=== PATIENT | female | born 1945 | race Asian ===

== ENCOUNTER 2017-05-15 20:08 | Inpatient (IN) | payer MEDICARE, OTHER ==
[~2017-05-15] VITALS: Ht 160 cm; Wt 68.0 kg
[2017-05-15] MEDS ORDERED: Sodium Chloride 500ML 500 ML IV ONE (20:30)
[2017-05-15 21:16] LABS: BASOPHILS % (AUTO) 1.1 % (0.0-2.0); EOSINOPHILS % (AUTO) 0.8 % (0.0-3.0); HEMATOCRIT 41.1 % (37.0-47.0); HEMOGLOBIN 14.1 G/DL (12.0-16.0); LYMPHOCYTES % (AUTO) 34.5 % (20.0-45.0); MEAN CORPUSCULAR VOLUME 96 FL (80-99); MONOCYTES % (AUTO) 7.7 % (1.0-10.0); NEUTROPHILS % (AUTO) 55.9 % (45.0-75.0); PLATELET COUNT 220 K/UL (150-450); RED CELL DISTRIBUTION WIDTH 11.9 % (11.6-14.8); WHITE BLOOD COUNT 7.4 K/UL (4.8-10.8)
[2017-05-15 21:25] LABS: ANION GAP 10 mmol/L (5-15); BLOOD UREA NITROGEN 17 mg/dL (7-18); CARBON DIOXIDE 26 MMOL/L (21-32); CHLORIDE 105 MMOL/L (98-107); CREATININE 0.8 MG/DL (0.55-1.30); POTASSIUM 3.9 MMOL/L (3.5-5.1); SODIUM 141 MMOL/L (136-145)
[2017-05-15 21:48] LABS: ALANINE AMINOTRANSFERASE 39 U/L (12-78); ALBUMIN 3.8 G/DL (3.4-5.0); ALBUMIN/GLOBULIN RATIO 1.2 (1.0-2.7); ALKALINE PHOSPHATASE 60 U/L (46-116); ASPARTATE AMINO TRANSFERASE 25 U/L (15-37); BILIRUBIN,TOTAL 0.3 MG/DL (0.2-1.0); CKMB 0.9 NG/ML (0.0-3.6); CREATINE KINASE 76 U/L (26-308)
[2017-05-15 21:51] LABS: INR 8.1 (0.9-1.1)
--- NOTE | 2017-05-15 22:29 | Emergency Room Report ---
History of Present Illness General Chief Complaint: Abnormal Labs Source: Medical Record, EMS Present Illness HPI 71-year-old male presents ED for evaluation. Patient referred here for abnormal labs. Had coags that were abnormally high. She resides in [facility] facility. Patient is on Coumadin. Portable patient states she feels okay. Denies any headache nausea or vomiting. Denies any chest pain shortness of breath. No other aggravating or relieving factors. Denies any other associated symptoms Allergies: Coded Allergies: MICAFUNGIN (Unverified Allergy, Unknown, 05/15/17) VANCOMYCIN (Unverified Allergy, Unknown, 05/15/17) Patient History Past Medical History: CVA/TIA Past Surgical History: none Pertinent Family History: none Social History: Denies: smoking, alcohol use, drug use Now: No Immunizations: UTD Reviewed Nursing Documentation: PMH: Agreed, PSxH: Agreed Nursing Documentation-PMH Hx Cerebrovascular Accident: Yes - ALOC Review of Systems All Other Systems: negative except mentioned in HPI Physical Exam Vital Signs Date Time Temp Pulse Resp B/P (MAP) Pulse Ox O2 Delivery O2 Flow Rate FiO2 05/15/17 20:02 97.9 77 16 131/87 95 Room Air Sp02 EP Interpretation: reviewed, normal General Appearance: no apparent distress, alert, GCS 15, non-toxic Head: normocephalic, atraumatic Eyes: bilateral eye normal inspection, bilateral eye PERRL ENT: hearing grossly normal, normal pharynx, no angioedema, normal voice Neck: full range of motion, supple/symm/no masses Respiratory: chest non-tender, lungs clear, normal breath sounds, speaking full sentences Cardiovascular #1: regular rate, rhythm, no edema Cardiovascular #2: 2+ carotid (R), 2+ carotid (L), 2+ radial (R), 2+ radial (L) , 2+ dorsalis pedis (R), 2+ dorsalis pedis (L) Gastrointestinal: normal bowel sounds, non tender, soft, non-distended, no guarding, no rebound Rectal: deferred Genitourinary: normal inspection, no CVA tenderness Musculoskeletal: back normal, gait/station normal, normal range of motion, non- tender Neurologic: alert, oriented x3, responsive, motor strength/tone normal, sensory intact, speech normal Psychiatric: judgement/insight normal, memory normal, mood/affect normal, no suicidal/homicidal ideation Reflexes: 3+ bicep (R), 3+ bicep (L), 3+ tricep (R), 3+ tricep (L), 3+ knee (R) , 3+ knee (L) Skin: normal color, no rash, warm/dry, well hydrated Lymphatic: no adenopathy Medical Decision Making Diagnostic Impression: Primary Impression: Supratherapeutic international normalized ratio (INR) ER Course Hospital Course 71-year-old female presents ED for elevated INR. On Coumadin Differential diagnoses include: coagulopathy, bleeding, subdural heamtoma Clinical course Patient placed on stretcher. on loader. After initial history and physical I ordered labs, EKG, chest x-ray, IVFs, CT Brain labs reviewed- no leukocytosis, hemoglobin/hematocrit ok, electrolytes okay, troponins negative, INR 8.1 EKG-NSR, no acute ischemic changes interpreted by me Chest x-ray- no acute process CT brain- s/p craniectomy, no acute bleed given vitamin K Case discussed with Dr. Salazar and he agreed to accept the patient to his service for further care and support I. I feel this is a highly complex case requiring extensive working including EKG/Rhythm strip, Xray/CT/US, Blood/urine lab work, repeat exams while in ED, and administration of strong opiates/narcotics for pain control, admission to hospital or close patient follow up. Diagnosis - supratherapeutic INR admitted to telemetry in serious condition Labs Test 05/15/17 20:40 White Blood Count 7.4 K/UL (4.8-10.8) Red Blood Count 4.30 M/UL (4.20-5.40) Hemoglobin 14.1 G/DL (12.0-16.0) Hematocrit 41.1 % (37.0-47.0) Mean Corpuscular Volume 96 FL (80-99) Mean Corpuscular Hemoglobin 32.9 PG (27.0-31.0) Mean Corpuscular Hemoglobin Concent 34.4 G/DL (32.0-36.0) Red Cell Distribution Width 11.9 % (11.6-14.8) Platelet Count 220 K/UL (150-450) Mean Platelet Volume 6.9 FL (6.5-10.1) Neutrophils (%) (Auto) 55.9 % (45.0-75.0) Lymphocytes (%) (Auto) 34.5 % (20.0-45.0) Monocytes (%) (Auto) 7.7 % (1.0-10.0) Eosinophils (%) (Auto) 0.8 % (0.0-3.0) Basophils (%) (Auto) 1.1 % (0.0-2.0) Prothrombin Time 87.0 SEC (9.30-11.50) Prothromb Time International Ratio 8.1 (0.9-1.1) Activated Partial Thromboplast Time 63 SEC (23-33) Sodium Level 141 MMOL/L (136-145) Potassium Level 3.9 MMOL/L (3.5-5.1) Chloride Level 105 MMOL/L (98-107) Carbon Dioxide Level 26 MMOL/L (21-32) Anion Gap 10 mmol/L (5-15) Blood Urea Nitrogen 17 mg/dL (7-18) Creatinine 0.8 MG/DL (0.55-1.30) Estimat Glomerular Filtration Rate mL/min (>60) Glucose Level 121 MG/DL (74-106) Calcium Level 9.0 MG/DL (8.5-10.1) Total Bilirubin 0.3 MG/DL (0.2-1.0) Aspartate Amino Transf (AST/SGOT) 25 U/L (15-37) Alanine Aminotransferase (ALT/SGPT) 39 U/L (12-78) Alkaline Phosphatase 60 U/L (46-116) Total Creatine Kinase 76 U/L (26-308) Creatine Kinase MB 0.9 NG/ML (0.0-3.6) Creatine Kinase MB Relative Index 1.1 Troponin I 0.000 ng/mL (0.000-0.056) Total Protein 7.0 G/DL (6.4-8.2) Albumin 3.8 G/DL (3.4-5.0) Globulin 3.2 g/dL Albumin/Globulin Ratio 1.2 (1.0-2.7) EKG Diagnostic Results Rate: normal Rhythm: NSR ST Segments: no acute changes ASA given to the pt in ED: No Rhythm Strip Diag. Results EP Interpretation: yes Rhythm: NSR, no PVC's, no ectopy Chest X-Ray Diagnostic Results Chest X-Ray Diagnostic Results : Chest X-Ray Ordered: Yes # of Views/Limited/Complete: 1 View Indication: Chest Pain EP Interpretation: Yes Interpretation: no consolidation, no effusion, no pneumothorax, no acute cardiopulmonary disease Impression: No acute disease Electronically Signed by: Electronically signed by Kel Pollock MD CT/MRI/US Diagnostic Results CT/MRI/US Diagnostic Results : Imaging Test Ordered: CT head Impression status post craniectomy, no acute bleed Last Vital Signs Date Time Temp Pulse Resp B/P (MAP) Pulse Ox O2 Delivery O2 Flow Rate FiO2 05/15/17 20:02 97.9 77 16 131/87 95 Room Air Status: improved Disposition: ADMITTED INPATIENT Condition: Serious Referrals: Natalee Salazar MD (PCP) KEL POLLOCK M.D. May 15, 2017 22:29
[2017-05-15 22:30] VITALS: BP 126/83
[2017-05-15] MEDS ORDERED: Phytonadione 5 MG in D5W 55 ML IVPB ONE (23:00)
[2017-05-15] MEDS ORDERED: Phytonadione 10 mg/mL 1ml amp ONE (23:05)
[2017-05-15] MEDS ORDERED: MULTIVITAMINS1 EAC8 ORAL (23:13)
[2017-05-15] MEDS ORDERED: COUMADIN4 MG ORAL (23:13)
[2017-05-15] MEDS ORDERED: RANITIDINE HCL150 MG ORAL (23:13)
[2017-05-15] MEDS ORDERED: AMANTADINE100 M2 ORAL (23:13)
[2017-05-15] MEDS ORDERED: LEVETIRACETAM500 MG ORAL (23:13)
[2017-05-15] MEDS ORDERED: AMIODARONE HCL400 M1 ORAL (23:13)
[2017-05-15] MEDS ORDERED: POLYETHYLENE GL17 GM ORAL (23:13)
[2017-05-15] MEDS ORDERED: ACETAMINOPHEN325 M1 ORAL (23:13)
[2017-05-15] MEDS ORDERED: LABETALOL HCL100 MG ORAL (23:13)
[2017-05-15] MEDS ORDERED: MILK OF MA400 MG/51 ORAL (23:13)
[2017-05-15] MEDS ORDERED: ZYRTEC10 MG ORAL (23:13)
[2017-05-16 04:00] VITALS: BP 131/89
[2017-05-16 08:00] VITALS: BP 151/100
--- NOTE | 2017-05-16 11:45 | Diagnostic Imaging Report ---
Indication: Abdominal pain Technique: Supine view of the abdomen Comparison: none Findings: Unremarkable bowel gas pattern. Moderate amount of retained stool is demonstrated. There is borderline distention of the rectum with stool. No small bowel distention. No unusual masses or calcifications Impression: No acute process Possible constipation. Mild rectal fecal impaction excludable
--- NOTE | 2017-05-16 11:49 | Diagnostic Imaging Report ---
Indication: Shortness of breath Technique: One view of the chest Comparison: 03/28/2016 Findings: Previously demonstrated endotracheal and nasogastric tubes are no longer evident. Lungs and pleural spaces are currently clear. Heart size is upper limits of normal. The aorta is tortuous and ectatic Impression: No acute process
[2017-05-16 12:00] VITALS: BP 137/87
[2017-05-16] MEDS ORDERED: Mineral Oil 30ml ud ORAL PRN (15:00)
--- NOTE | 2017-05-16 15:06 | Diagnostic Imaging Report ---
Indications: Altered mental status Technique: Spiral acquisitions obtained through the brain. Angled axial and coronal 5 x 5 mm slices were reconstructed. Total dose length product 1340.9 mGycm. CTDI vol(s) 70.38 mGy. Dose reduction achieved using automated exposure control Comparison: 03/28/2016 Findings: Interim large left convexity craniectomy. Interval evacuation of previously demonstrated large left convexity subdural hematoma and subjacent subarachnoid or intraparenchymal hemorrhage. Currently, no acute intracranial hemorrhage or edema, mass effect or midline shift. There is age-related enlargement of the ventricles, with some ex vacuo dilatation of the left lateral ventricle. There is evidence of encephalomalacia of the left temporal lobe. There is some periventricular deep white matter low-attenuation. The fracture line of the previously demonstrated longitudinal right temporal bone fracture persists to some extent that is much less distinct than previously. Previously demonstrated mastoid opacification has largely resolved, with just a few opacified mastoid air cells still present. No acute skull fracture demonstrated currently sinuses are clear. The orbits are unremarkable Impression: Postsurgical changes, as described, with large left convexity craniectomy defect, interim evacuation of previously demonstrated massive subdural hematoma Negative for acute intracranial bleed or mass effect Residual right temporal skull fracture Minimal residual mastoid opacification on the right This agrees with the preliminary interpretation provided overnight by [facility] teleradiology service. The CT scanner at [facility] is accredited by the [employer] and the scans are performed using protocols designed to limit radiation exposure to as low as reasonably achievable to attain images of sufficient resolution adequate for diagnostic evaluation.
--- NOTE | 2017-05-16 15:40 | GI Initial Consult Note ---
TellezShira Omi N.P. 05/16/17 1540: History of Present Illness General Date patient seen: May 16, 2017 Time patient seen: 15:35 Reason for Hospitalization: Abnormal Labs Referring physician: ANCELMO ROBERTSON Reason for Consultation: ABDOMINAL PAIN Present Illness HPI 71-year-old male presents ED for evaluation. Patient referred here for abnormal labs. Had coags that were abnormally high. She resides in [facility] facility. Patient is on Coumadin. Portable patient states she feels okay. Denies any headache nausea or vomiting. Denies any chest pain shortness of breath. No other aggravating or relieving factors. Denies any other associated symptoms. GI consulted for abdominal pain. ROS limited, seen on floor awake alert NAD with no active N/V/D. Currently tolerating diet. C/o of abdominal pain, soft non-tender. KUB shows constipation. POLST reviewed Full Code and Tx. Unknown history of endoscopies / colonoscopies. Home Meds Discontinued Reported Medications Ranitidine Hcl* (ZANTAC*) 150 Mg Tablet, 150 MG ORAL TWICE A DAY, TAB 05/15/17 Acetaminophen* (ACETAMINOPHEN 325MG TABLET*) 325 Mg Tablet, 650 MG ORAL Q4H Y for Prn Headache/Temp > 101, TAB 05/15/17 Polyethylene Glycol 3350* (POLYETHYLENE GLYCOL 3350*) 17 Gm Powd.pack, 17 GM ORAL BEDTIME Y for Constipation, PACKET 05/15/17 Multivitamin With Minerals (MULTIVITAMINS WITH MINERALS*) 1 Each Tablet, 1 TAB ORAL DAILY, TAB 05/15/17 Magnesium Hydroxide* (MILK OF MAGNESIA*) 400 Mg/5 Ml Oral.susp, 30 ML ORAL DAILY , ML 05/15/17 Levetiracetam* (LEVETIRACETAM*) 500 Mg Tablet, 250 MG ORAL TWICE A DAY, #60 TAB 0 Refills 05/15/17 Labetalol Hcl* (NORMODYNE*) 100 Mg Tablet, 100 MG ORAL EVERY 12 HOURS, TAB 05/15/17 Warfarin Sod* (COUMADIN*) 4 Mg Tablet, 4 MG ORAL DAILY, TAB 05/15/17 Cetirizine Hcl* (ZYRTEC*) 10 Mg Tablet, 10 MG ORAL EVERY 6 HOURS, #30 TAB 0 Refills 05/15/17 Amiodarone Hcl* (AMIODARONE HCL*) 400 Mg Tablet, 200 MG ORAL DAILY, TAB 05/15/17 Amantadine Hcl* (AMANTADINE*) 100 Mg Tablet, 100 MG ORAL TWICE A DAY, TAB 05/15/17 Med list reviewed/reconciled: Yes Allergies: Coded Allergies: MICAFUNGIN (Unverified Allergy, Unknown, 05/15/17) VANCOMYCIN (Unverified Allergy, Unknown, 05/15/17) Patient History History Provided By: Medical Record PMH Narrative Past Medical History: CVA/TIA Past Surgical History: none Pertinent Family History: none Social History: Denies: smoking, alcohol use, drug use Now: No Immunizations: UTD Reviewed Nursing Documentation: PMH: Agreed, PSxH: Agreed Nursing Documentation-PMH Hx Cerebrovascular Accident: Yes - ALOC Review of Systems All Other Systems: limited Physical Exam Vital Signs Date Time Temp Pulse Resp B/P (MAP) Pulse Ox O2 Delivery O2 Flow Rate FiO2 05/15/17 20:02 97.9 77 16 131/87 95 Room Air Sp02 EP Interpretation: reviewed, normal Labs Laboratory Tests Test 05/15/17 20:40 White Blood Count 7.4 K/UL (4.8-10.8) Red Blood Count 4.30 M/UL (4.20-5.40) Hemoglobin 14.1 G/DL (12.0-16.0) Hematocrit 41.1 % (37.0-47.0) Mean Corpuscular Volume 96 FL (80-99) Mean Corpuscular Hemoglobin 32.9 PG (27.0-31.0) H Mean Corpuscular Hemoglobin Concent 34.4 G/DL (32.0-36.0) Red Cell Distribution Width 11.9 % (11.6-14.8) Platelet Count 220 K/UL (150-450) Mean Platelet Volume 6.9 FL (6.5-10.1) Neutrophils (%) (Auto) 55.9 % (45.0-75.0) Lymphocytes (%) (Auto) 34.5 % (20.0-45.0) Monocytes (%) (Auto) 7.7 % (1.0-10.0) Eosinophils (%) (Auto) 0.8 % (0.0-3.0) Basophils (%) (Auto) 1.1 % (0.0-2.0) Prothrombin Time 87.0 SEC (9.30-11.50) H Prothromb Time International Ratio 8.1 (0.9-1.1) *H Activated Partial Thromboplast Time 63 SEC (23-33) H Sodium Level 141 MMOL/L (136-145) Potassium Level 3.9 MMOL/L (3.5-5.1) Chloride Level 105 MMOL/L (98-107) Carbon Dioxide Level 26 MMOL/L (21-32) Anion Gap 10 mmol/L (5-15) Blood Urea Nitrogen 17 mg/dL (7-18) Creatinine 0.8 MG/DL (0.55-1.30) Estimat Glomerular Filtration Rate mL/min (>60) Glucose Level 121 MG/DL (74-106) H Calcium Level 9.0 MG/DL (8.5-10.1) Total Bilirubin 0.3 MG/DL (0.2-1.0) Aspartate Amino Transf (AST/SGOT) 25 U/L (15-37) Alanine Aminotransferase (ALT/SGPT) 39 U/L (12-78) Alkaline Phosphatase 60 U/L (46-116) Total Creatine Kinase 76 U/L (26-308) Creatine Kinase MB 0.9 NG/ML (0.0-3.6) Creatine Kinase MB Relative Index 1.1 Troponin I 0.000 ng/mL (0.000-0.056) Total Protein 7.0 G/DL (6.4-8.2) Albumin 3.8 G/DL (3.4-5.0) Globulin 3.2 g/dL Albumin/Globulin Ratio 1.2 (1.0-2.7) General Appearance: well appearing, no apparent distress, alert Head: normocephalic EENT: PERRL/EOMI, normal ENT inspection Neck: supple Respiratory: normal breath sounds, no respiratory distress Cardiovascular: normal rate Gastrointestinal: normal inspection, non tender, soft, normal bowel sounds, non -distended Rectal: deferred Genitourinary: no CVA tenderness Musculoskeletal: normal inspection, back normal Neurologic: normal inspection, alert, responsive Psychiatric: other - AMS Skin: normal inspection, normal color, no rash, warm/dry, palpation normal, well hydrated Lymphatic: normal inspection, no adenopathy Current Medications Current Medications Medications (Trade) Dose Ordered Sig/Elvia Route PRN Reason Start Time Stop Time Status Last Admin Dose Admin Acetaminophen (Tylenol) 650 mg Q4H PRN ORAL Mild Pain/Temp > 100.5 05/16/17 02:45 06/15/17 02:44 05/16/17 09:44 Docusate Sodium (Colace) 100 mg THREE TIMES A DAY ORAL 05/16/17 18:00 06/15/17 17:59 Mineral Oil (Fleet's Mineral Oil Enema) 133 ml ONCE ONCE RECTAL 05/17/17 09:00 05/17/17 09:01 Mineral Oil (Mineral Oil) 30 ml DAILY PRN ORAL Constipation 05/16/17 15:00 06/15/17 14:59 Polyethylene Glycol (Miralax) 17 gm BEDTIME ORAL 05/16/17 21:00 06/15/17 20:59 GI: Plan Problems: (1) Abdominal pain (2) Constipation Plan KUB reviewed >> constipation symptomatic treatment PO mineral oil x 1 start bowel regime >> colace + miralax, prn mineral oil enema regular diet, tolerating PT/OT eval H2B fu labs Discussed with Dr. Fung. Thank you for this patient referral, we will follow. TERE FUNG 05/17/17 0907: History of Present Illness General Reason for Hospitalization: Abnormal Labs Present Illness Home Meds Discontinued Reported Medications Ranitidine Hcl* (ZANTAC*) 150 Mg Tablet, 150 MG ORAL TWICE A DAY, TAB 05/15/17 Acetaminophen* (ACETAMINOPHEN 325MG TABLET*) 325 Mg Tablet, 650 MG ORAL Q4H Y for Prn Headache/Temp > 101, TAB 05/15/17 Polyethylene Glycol 3350* (POLYETHYLENE GLYCOL 3350*) 17 Gm Powd.pack, 17 GM ORAL BEDTIME Y for Constipation, PACKET 05/15/17 Multivitamin With Minerals (MULTIVITAMINS WITH MINERALS*) 1 Each Tablet, 1 TAB ORAL DAILY, TAB 05/15/17 Magnesium Hydroxide* (MILK OF MAGNESIA*) 400 Mg/5 Ml Oral.susp, 30 ML ORAL DAILY , ML 05/15/17 Levetiracetam* (LEVETIRACETAM*) 500 Mg Tablet, 250 MG ORAL TWICE A DAY, #60 TAB 0 Refills 05/15/17 Labetalol Hcl* (NORMODYNE*) 100 Mg Tablet, 100 MG ORAL EVERY 12 HOURS, TAB 05/15/17 Warfarin Sod* (COUMADIN*) 4 Mg Tablet, 4 MG ORAL DAILY, TAB 05/15/17 Cetirizine Hcl* (ZYRTEC*) 10 Mg Tablet, 10 MG ORAL EVERY 6 HOURS, #30 TAB 0 Refills 05/15/17 Amiodarone Hcl* (AMIODARONE HCL*) 400 Mg Tablet, 200 MG ORAL DAILY, TAB 05/15/17 Amantadine Hcl* (AMANTADINE*) 100 Mg Tablet, 100 MG ORAL TWICE A DAY, TAB 05/15/17 Allergies: Coded Allergies: MICAFUNGIN (Unverified Allergy, Unknown, 05/15/17) VANCOMYCIN (Unverified Allergy, Unknown, 05/15/17) GI: Plan Plan The patient was seen and examined at bedside and all new and available data was reviewed in the patients chart. I agree with the above findings, impression and plan. (Patient seen earlier today. Signature stamp does not reflect patient encounter time.). - MD Rosalinda OlivaresS[facility] Omi N.PCruz May 16, 2017 15:40 TERE FUNG May 17, 2017 09:07
[2017-05-16 16:00] VITALS: BP 123/71
[2017-05-16 16:15] LABS: BASOPHILS % (AUTO) 1.1 % (0.0-2.0); EOSINOPHILS % (AUTO) 0.6 % (0.0-3.0); HEMATOCRIT 44.1 % (37.0-47.0); HEMOGLOBIN 15.7 G/DL (12.0-16.0); LYMPHOCYTES % (AUTO) 32.4 % (20.0-45.0); MEAN CORPUSCULAR VOLUME 94 FL (80-99); MONOCYTES % (AUTO) 7.9 % (1.0-10.0); PLATELET COUNT 258 K/UL (150-450); RED BLOOD COUNT 4.71 M/UL (4.20-5.40); RED CELL DISTRIBUTION WIDTH 11.3 % (11.6-14.8); WHITE BLOOD COUNT 7.4 K/UL (4.8-10.8)
[2017-05-16 16:27] LABS: INR 1.5 (0.9-1.1)
[2017-05-16 16:33] LABS: ALANINE AMINOTRANSFERASE 38 U/L (12-78); ALKALINE PHOSPHATASE 65 U/L (46-116); ANION GAP 13 mmol/L (5-15); ASPARTATE AMINO TRANSFERASE 22 U/L (15-37); BILIRUBIN,TOTAL 0.4 MG/DL (0.2-1.0); BLOOD UREA NITROGEN 12 mg/dL (7-18); CALCIUM 9.3 MG/DL (8.5-10.1); CARBON DIOXIDE 24 MMOL/L (21-32); CHLORIDE 107 MMOL/L (98-107); CREATININE 0.7 MG/DL (0.55-1.30); SODIUM 144 MMOL/L (136-145)
[2017-05-16] MEDS: Docusate 100mg cap ORAL SCH (17:48)
[2017-05-16 20:00] VITALS: BP 115/80
[2017-05-16] MEDS: Miralax 17gm pkt ORAL SCH (20:46)
[2017-05-17] VITALS: BP 119/79
--- NOTE | 2017-05-17 01:45 | Consultation ---
DATE OF CONSULTATION: 05/16/2017 NOTE: POOR AUDIO HEMATOLOGY/ONCOLOGY CONSULTATION CONSULTING PHYSICIAN: Huseyin Van M.D. REQUESTING PHYSICIAN: Natalee Salazar M.D. REASON FOR CONSULTATION: Evaluation of coagulopathy. IDENTIFYING DATA: Dear Dr. Salazar, The patient is a pleasant 71-year-old , who I have seen in the past with past medical history significant for CVA and TIA, at this time presents with abnormal labs with INR, which was above 8. Resides in a skilled nursing. Has been on Coumadin. Coumadin currently on hold, has been given vitamin K in the ER. INR is being rechecked today. Currently, the patient with abdominal pain. No evidence of significant bleeding at this time with a hemoglobin of 14 and platelet count within normal limits. Hematology Service was consulted for further evaluation and treatment. PAST MEDICAL HISTORY: As noted above, CVA and TIA. PAST SURGICAL HISTORY: None known. ALLERGIES: . SOCIAL HISTORY: No alcohol, tobacco, or illicit drug use. REVIEW OF SYSTEMS: CONSTITUTIONAL: No fever, chills, or night sweats. SKIN: No rashes, bumps, or itching. HEENT: No headache, hearing or vision changes. BREASTS: No lumps, pain, or discharge. PULMONARY: No cough, sputum, or shortness of breath. GASTROINTESTINAL: No nausea, vomiting, or diarrhea. GENITOURINARY: No dysuria, frequency, or urgency. MUSCULOSKELETAL: No joint swelling, muscle pain, or trauma. PHYSICAL EXAMINATION: VITAL SIGNS: Reviewed. GENERAL: No acute distress. PULMONARY: Decreased breath sounds. CARDIOVASCULAR: Regular rate. No S3 or S4. ABDOMEN: Soft, nontender, and nondistended. EXTREMITIES: No cyanosis, swelling, or edema. LABORATORY DATA: WBC 7.4, hemoglobin , hematocrit of 41, and platelet count 220,000. INR of 8.1. ASSESSMENT AND RECOMMENDATIONS: 1. Coagulopathy due to underlying supratherapeutic use of Coumadin. Currently, hold Coumadin. Vitamin K administered. Recheck INR immediately. Continue to hold Coumadin until INR is less than 3. 2. Status post craniectomy. 3. Abdominal pain, rule out bleed. To be seen by GI Service. 4. Leukocytosis in the past. Currently, hold Coumadin. 5. Hyperglycemia. Check A1c. I appreciate the consultation. Huseyin Van M.D. DR: LUCY JOB#: [id number] CC:
--- NOTE | 2017-05-17 02:15 | History and Physical Report ---
DATE OF ADMISSION: 05/15/2017 HISTORY OF PRESENT ILLNESS: The patient is currently . Patient has INR of 8 and is admitted for coagulopathy and monitor for any bleeding. The patient also complained of some abdominal pain and headache. Very confused, cannot get any reliable history from the patient. The patient has coagulopathy. Again, the patient is very confused, cannot get any reliable history with the Ukrainian speaking nurse at the bedside. Chest x-ray showed no acute process. EKG shows no acute ischemic changes. Vitamin K was given. PAST MEDICAL HISTORY: Dementia, skull fracture, history of subdural hematoma in the past, and history of CVA. PAST SURGICAL HISTORY: Unable to obtain. MEDICATIONS: Coumadin. ALLERGIES: Micafungin and vancomycin. FAMILY HISTORY: Unable to obtain. SOCIAL HISTORY: Denies history of smoking, alcohol, or illicit drugs. REVIEW OF SYSTEMS: Unable to obtain. PHYSICAL EXAMINATION: VITAL SIGNS: Temperature 97.9, pulse 77, and blood pressure 131/87. HEENT: PERRLA. NECK: Supple. No lymphadenopathy. CHEST: Clear to auscultation. CARDIOVASCULAR: Regular rate and rhythm. GASTROINTESTINAL: Soft, nontender. No organomegaly. EXTREMITIES: No edema. NEUROLOGIC: Sensory is intact to light touch. Reflexes are equal on both sides. Moves all 4 extremities. Oriented to name. LABORATORY DATA: WBC of 7.4, hemoglobin of 14.1, and platelets of 220,000. Sodium 141, potassium 3.9, BUN of 17, and creatinine of 0.8. Glucose of 121. Troponin is negative. ASSESSMENT AND PLAN: Coagulopathy. Monitor for bleeding. I have asked Dr. Van, Dr. Peter, and Dr. Gerber to see the patient for the abdominal pain as well as for coagulopathy as well as for dehydration. Natalee Salazar M.D. DR: TERE JOB#: [id number] CC:
[2017-05-17 04:00] VITALS: BP 109/82
[2017-05-17 08:00] VITALS: BP 128/79
[2017-05-17 08:01] LABS: BASOPHILS % (AUTO) 1.2 % (0.0-2.0); EOSINOPHILS % (AUTO) 1.6 % (0.0-3.0); HEMATOCRIT 44.5 % (37.0-47.0); HEMOGLOBIN 15.1 G/DL (12.0-16.0); LYMPHOCYTES % (AUTO) 40.2 % (20.0-45.0); MEAN CORPUSCULAR VOLUME 96 FL (80-99); MONOCYTES % (AUTO) 7.9 % (1.0-10.0); NEUTROPHILS % (AUTO) 49.2 % (45.0-75.0); PLATELET COUNT 236 K/UL (150-450); RED BLOOD COUNT 4.64 M/UL (4.20-5.40); RED CELL DISTRIBUTION WIDTH 11.6 % (11.6-14.8); WHITE BLOOD COUNT 5.8 K/UL (4.8-10.8)
[2017-05-17 08:25] LABS: INR 1.4 (0.9-1.1)
[2017-05-17 08:31] LABS: ANION GAP 10 mmol/L (5-15); BLOOD UREA NITROGEN 15 mg/dL (7-18); CALCIUM 9.1 MG/DL (8.5-10.1); CARBON DIOXIDE 28 MMOL/L (21-32); CHLORIDE 107 MMOL/L (98-107); CREATININE 0.7 MG/DL (0.55-1.30); POTASSIUM 3.9 MMOL/L (3.5-5.1); SODIUM 144 MMOL/L (136-145)
[2017-05-17] MEDS ORDERED: Fleet's Mineral Oil Enema RECTAL ONE (09:00)
[2017-05-17] MEDS: Docusate 100mg cap ORAL SCH ×3 (09:13→18:12)
--- NOTE | 2017-05-17 11:21 | GI Progress Note ---
Assessment/Plan Problems: (1) Abdominal pain ICD Codes: R10.9 - Unspecified abdominal pain SNOMED: 47419390 (2) Constipation ICD Codes: K59.00 - Constipation, unspecified SNOMED: 31406469 (3) Supratherapeutic international normalized ratio (INR) ICD Codes: R79.1 - Abnormal coagulation profile SNOMED: 279955554 Status: stable Status Narrative Discussed with Dr. Peter. Assessment/Plan KUB reviewed >> constipation colonoscopy Monday if still inpatient bowel regime >> colace + miralax, prn mineral oil enema regular diet, tolerating PT/OT eval H2B fu labs, CEA Subjective Gastrointestinal/Abdominal: Reports: no symptoms Subjective denies abdominal pain had multiple BMs Objective Last 24 Hour Vital Signs Date Time Temp Pulse Resp B/P (MAP) Pulse Ox O2 Delivery O2 Flow Rate FiO2 05/17/17 10:00 81 05/17/17 08:00 97.9 79 18 128/79 95 Room Air 05/17/17 04:00 81 05/17/17 04:00 97.9 83 20 109/82 96 Room Air 05/17/17 00:00 97.9 82 18 119/79 97 Room Air 05/17/17 00:00 94 05/16/17 20:00 94 05/16/17 20:00 96.8 94 20 115/80 96 Room Air 05/16/17 16:00 97.8 97 18 123/71 98 Room Air 05/16/17 16:00 93 05/16/17 12:00 94 05/16/17 12:00 97.7 99 18 137/87 96 Room Air Intake and Output 05/16/17 05/17/17 19:00 07:00 Intake Total 480 ml 200 ml Balance 480 ml 200 ml Intake Oral 480 ml 200 ml # Voids 6 2 # Bowel Movements 3 Laboratory Tests Test 05/16/17 15:30 05/17/17 05:30 White Blood Count 7.4 K/UL (4.8-10.8) 5.8 K/UL (4.8-10.8) Red Blood Count 4.71 M/UL (4.20-5.40) 4.64 M/UL (4.20-5.40) Hemoglobin 15.7 G/DL (12.0-16.0) 15.1 G/DL (12.0-16.0) Hematocrit 44.1 % (37.0-47.0) 44.5 % (37.0-47.0) Mean Corpuscular Volume 94 FL (80-99) 96 FL (80-99) Mean Corpuscular Hemoglobin 33.3 PG (27.0-31.0) H 32.6 PG (27.0-31.0) H Mean Corpuscular Hemoglobin Concent 35.6 G/DL (32.0-36.0) 34.0 G/DL (32.0-36.0) Red Cell Distribution Width 11.3 % (11.6-14.8) L 11.6 % (11.6-14.8) Platelet Count 258 K/UL (150-450) 236 K/UL (150-450) Mean Platelet Volume 6.6 FL (6.5-10.1) 6.5 FL (6.5-10.1) Neutrophils (%) (Auto) 58.0 % (45.0-75.0) 49.2 % (45.0-75.0) Lymphocytes (%) (Auto) 32.4 % (20.0-45.0) 40.2 % (20.0-45.0) Monocytes (%) (Auto) 7.9 % (1.0-10.0) 7.9 % (1.0-10.0) Eosinophils (%) (Auto) 0.6 % (0.0-3.0) 1.6 % (0.0-3.0) Basophils (%) (Auto) 1.1 % (0.0-2.0) 1.2 % (0.0-2.0) Prothrombin Time 15.4 SEC (9.30-11.50) H 14.6 SEC (9.30-11.50) H Prothromb Time International Ratio 1.5 (0.9-1.1) H 1.4 (0.9-1.1) H Activated Partial Thromboplast Time 36 SEC (23-33) H 35 SEC (23-33) H Sodium Level 144 MMOL/L (136-145) 144 MMOL/L (136-145) Potassium Level 4.0 MMOL/L (3.5-5.1) 3.9 MMOL/L (3.5-5.1) Chloride Level 107 MMOL/L (98-107) 107 MMOL/L (98-107) Carbon Dioxide Level 24 MMOL/L (21-32) 28 MMOL/L (21-32) Anion Gap 13 mmol/L (5-15) 10 mmol/L (5-15) Blood Urea Nitrogen 12 mg/dL (7-18) 15 mg/dL (7-18) Creatinine 0.7 MG/DL (0.55-1.30) 0.7 MG/DL (0.55-1.30) Estimat Glomerular Filtration Rate mL/min (>60) mL/min (>60) Glucose Level 117 MG/DL (74-106) H 92 MG/DL (74-106) Hemoglobin A1c 6.4 % (4.3-6.0) H Calcium Level 9.3 MG/DL (8.5-10.1) 9.1 MG/DL (8.5-10.1) Total Bilirubin 0.4 MG/DL (0.2-1.0) Aspartate Amino Transf (AST/SGOT) 22 U/L (15-37) Alanine Aminotransferase (ALT/SGPT) 38 U/L (12-78) Alkaline Phosphatase 65 U/L (46-116) Total Protein 8.0 G/DL (6.4-8.2) Albumin 4.0 G/DL (3.4-5.0) Globulin 4.0 g/dL Albumin/Globulin Ratio 1.0 (1.0-2.7) Height (Feet): 5 Height (Inches): 3.00 Weight (Pounds): 150 General Appearance: WD/WN, no apparent distress, alert, other - AMS Cardiovascular: normal rate Respiratory/Chest: normal breath sounds, no respiratory distress Abdominal Exam: normal bowel sounds, non tender, soft Extremities: normal range of motion, non-tender Shira Tellez N.P. May 17, 2017 11:20
[2017-05-17 12:54] VITALS: BP 114/90
[2017-05-17 16:00] VITALS: BP 106/76
--- NOTE | 2017-05-17 17:31 | Cardiology Report ---
APPROVED REPORT EKG Measurement Heart [id number] MD [id number] Normal sinus rhythm Prolonged QT Abnormal ECG
[2017-05-17 20:00] VITALS: BP 121/83
--- NOTE | 2017-05-17 20:04 | General Progress Note ---
Assessment/Plan Problem List: (1) Supratherapeutic INR ICD Codes: R79.1 - Abnormal coagulation profile SNOMED: 001981688 (2) Abdominal pain ICD Codes: R10.9 - Unspecified abdominal pain SNOMED: 46102946 Assessment/Plan inr is coming down afebrile vitals stable moniter for bleeding anti coagulation per heme/onc Subjective ROS Limited/Unobtainable: Yes Allergies: Coded Allergies: MICAFUNGIN (Unverified Allergy, Unknown, 05/15/17) VANCOMYCIN (Unverified Allergy, Unknown, 05/15/17) Objective Last 24 Hour Vital Signs Date Time Temp Pulse Resp B/P (MAP) Pulse Ox O2 Delivery O2 Flow Rate FiO2 05/17/17 16:00 98.0 84 18 106/76 98 Room Air 05/17/17 16:00 83 05/17/17 12:54 98.2 98 18 114/90 98 Room Air 05/17/17 12:00 94 05/17/17 10:00 81 05/17/17 08:00 97.9 79 18 128/79 95 Room Air 05/17/17 04:00 81 05/17/17 04:00 97.9 83 20 109/82 96 Room Air 05/17/17 00:00 97.9 82 18 119/79 97 Room Air 05/17/17 00:00 94 Intake and Output 05/16/17 05/17/17 19:00 07:00 Intake Total 480 ml 200 ml Balance 480 ml 200 ml Intake Oral 480 ml 200 ml # Voids 6 2 # Bowel Movements 3 Laboratory Tests 05/17/17 05:30: White Blood Count 5.8, Red Blood Count 4.64, Hemoglobin 15.1, Hematocrit 44.5, Mean Corpuscular Volume 96, Mean Corpuscular Hemoglobin 32.6H, Mean Corpuscular Hemoglobin Concent 34.0, Red Cell Distribution Width 11.6, Platelet Count 236, Mean Platelet Volume 6.5, Neutrophils (%) (Auto) 49.2, Lymphocytes (%) (Auto) 40.2, Monocytes (%) (Auto) 7.9, Eosinophils (%) (Auto) 1.6, Basophils (%) (Auto ) 1.2, Prothrombin Time 14.6H, Prothromb Time International Ratio 1.4H, Activated Partial Thromboplast Time 35H, Sodium Level 144, Potassium Level 3.9, Chloride Level 107, Carbon Dioxide Level 28, Anion Gap 10, Blood Urea Nitrogen 15, Creatinine 0.7, Estimat Glomerular Filtration Rate , Glucose Level 92, Calcium Level 9.1 Height (Feet): 5 Height (Inches): 3.00 Weight (Pounds): 150 General Appearance: confused Cardiovascular: normal rate Respiratory/Chest: lungs clear Natalee Salazar MD May 17, 2017 20:04
[2017-05-17] MEDS: Miralax 17gm pkt ORAL SCH (21:00)
[2017-05-18] VITALS: BP 111/79
--- NOTE | 2017-05-18 00:15 | General Progress Note ---
Assessment/Plan Assessment/Plan 1. Coagulopathy due to underlying supratherapeutic use of Coumadin. --> Vitamin K administered. --> INR downtrended and now 1.4, okay to resume Coumadin 2. Status post craniectomy. 3. Abdominal pain, rule out bleed. To be seen by GI Service. 4. Leukocytosis in the past. --> INR downtrended. 5. Hyperglycemia. Check A1c. Subjective Date patient seen: May 17, 2017 Constitutional: Denies: no symptoms, chills, diaphoresis, fever, malaise, weakness, other HEENT: Denies: no symptoms, eye pain, blurred vision, tearing, double vision, ear pain, ear discharge, nose pain, nose congestion, throat pain, throat swelling, mouth pain, mouth swelling, other Cardiovascular: Denies: no symptoms, chest pain, edema, irregular heart rate, lightheadedness, palpitations, syncope, other Respiratory: Denies: no symptoms, cough, orthopnea, shortness of breath, SOB with excertion, SOB at rest, sputum, stridor, wheezing, other Gastrointestinal/Abdominal: Denies: no symptoms, abdomen distended, abdominal pain, black stools, tarry stools, blood in stool, constipated, diarrhea, difficulty swallowing, nausea, poor appetite, poor fluid intake, rectal bleeding , vomiting, other Genitourinary: Denies: no symptoms, burning, discharge, frequency, flank pain, hematuria, incontinence, pain, urgency, other Allergies: Coded Allergies: MICAFUNGIN (Unverified Allergy, Unknown, 05/15/17) VANCOMYCIN (Unverified Allergy, Unknown, 05/15/17) Subjective INR downtrending. Afebrile. Objective Last 24 Hour Vital Signs Date Time Temp Pulse Resp B/P (MAP) Pulse Ox O2 Delivery O2 Flow Rate FiO2 05/18/17 00:00 97.5 75 20 111/79 95 Room Air 05/17/17 20:00 97.5 84 20 121/83 95 Room Air 05/17/17 16:00 98.0 84 18 106/76 98 Room Air 05/17/17 16:00 83 05/17/17 12:54 98.2 98 18 114/90 98 Room Air 05/17/17 12:00 94 05/17/17 10:00 81 05/17/17 08:00 97.9 79 18 128/79 95 Room Air 05/17/17 04:00 81 05/17/17 04:00 97.9 83 20 109/82 96 Room Air Intake and Output 05/17/17 05/18/17 19:00 07:00 Intake Total 720 ml Balance 720 ml Intake Oral 720 ml # Voids 3 Laboratory Tests 05/17/17 05:30: White Blood Count 5.8, Red Blood Count 4.64, Hemoglobin 15.1, Hematocrit 44.5, Mean Corpuscular Volume 96, Mean Corpuscular Hemoglobin 32.6H, Mean Corpuscular Hemoglobin Concent 34.0, Red Cell Distribution Width 11.6, Platelet Count 236, Mean Platelet Volume 6.5, Neutrophils (%) (Auto) 49.2, Lymphocytes (%) (Auto) 40.2, Monocytes (%) (Auto) 7.9, Eosinophils (%) (Auto) 1.6, Basophils (%) (Auto ) 1.2, Prothrombin Time 14.6H, Prothromb Time International Ratio 1.4H, Activated Partial Thromboplast Time 35H, Sodium Level 144, Potassium Level 3.9, Chloride Level 107, Carbon Dioxide Level 28, Anion Gap 10, Blood Urea Nitrogen 15, Creatinine 0.7, Estimat Glomerular Filtration Rate , Glucose Level 92, Calcium Level 9.1 Height (Feet): 5 Height (Inches): 3.00 Weight (Pounds): 150 Huseyin Van May 18, 2017 00:15
[2017-05-18 04:00] VITALS: BP 114/78
[2017-05-18 07:52] LABS: EOSINOPHILS % (AUTO) 0.9 % (0.0-3.0); HEMATOCRIT 43.3 % (37.0-47.0); HEMOGLOBIN 15.3 G/DL (12.0-16.0); LYMPHOCYTES % (AUTO) 43.3 % (20.0-45.0); MEAN CORPUSCULAR VOLUME 96 FL (80-99); MONOCYTES % (AUTO) 6.5 % (1.0-10.0); NEUTROPHILS % (AUTO) 48.4 % (45.0-75.0); PLATELET COUNT 238 K/UL (150-450); RED BLOOD COUNT 4.53 M/UL (4.20-5.40); RED CELL DISTRIBUTION WIDTH 11.7 % (11.6-14.8); WHITE BLOOD COUNT 6.1 K/UL (4.8-10.8)
[2017-05-18 08:00] VITALS: BP 111/78
[2017-05-18 08:02] LABS: INR 1.4 (0.9-1.1)
[2017-05-18 08:13] LABS: ANION GAP 7 mmol/L (5-15); BLOOD UREA NITROGEN 21 mg/dL (7-18); CALCIUM 9.3 MG/DL (8.5-10.1); CARBON DIOXIDE 29 MMOL/L (21-32); CHLORIDE 105 MMOL/L (98-107); CREATININE 0.7 MG/DL (0.55-1.30); POTASSIUM 3.9 MMOL/L (3.5-5.1); SODIUM 141 MMOL/L (136-145)
[2017-05-18] MEDS: Docusate 100mg cap ORAL SCH ×3 (09:17→18:53)
[2017-05-18 12:00] VITALS: BP 120/67
--- NOTE | 2017-05-18 13:01 | GI Progress Note ---
Assessment/Plan Problems: (1) Abdominal pain ICD Codes: R10.9 - Unspecified abdominal pain SNOMED: 54740677 (2) Constipation ICD Codes: K59.00 - Constipation, unspecified SNOMED: 96421039 (3) Supratherapeutic international normalized ratio (INR) ICD Codes: R79.1 - Abnormal coagulation profile SNOMED: 893272139 Status: stable Status Narrative Discussed with Dr. Peter. Assessment/Plan KUB reviewed >> constipation symptomatic treatment >> okay for DC per GI standpoint bowel regime >> colace + miralax, prn mineral oil enema regular diet, tolerating PT/OT eval H2B fu labs, [facility]A outpatient GI procedures Subjective Subjective denies abdominal pain had multiple BMs Objective Last 24 Hour Vital Signs Date Time Temp Pulse Resp B/P (MAP) Pulse Ox O2 Delivery O2 Flow Rate FiO2 05/18/17 08:00 97.2 88 21 111/78 97 Room Air 05/18/17 08:00 84 05/18/17 04:00 73 05/18/17 04:00 97.3 72 20 114/78 97 Room Air 05/18/17 00:00 97.5 75 20 111/79 95 Room Air 05/18/17 00:00 80 05/17/17 20:00 88 05/17/17 20:00 97.5 84 20 121/83 95 Room Air 05/17/17 16:00 98.0 84 18 106/76 98 Room Air 05/17/17 16:00 83 Intake and Output 05/17/17 05/18/17 19:00 07:00 Intake Total 720 ml Balance 720 ml Intake Oral 720 ml # Voids 3 1 Laboratory Tests Test 05/18/17 07:07 White Blood Count 6.1 K/UL (4.8-10.8) Red Blood Count 4.53 M/UL (4.20-5.40) Hemoglobin 15.3 G/DL (12.0-16.0) Hematocrit 43.3 % (37.0-47.0) Mean Corpuscular Volume 96 FL (80-99) Mean Corpuscular Hemoglobin 33.8 PG (27.0-31.0) H Mean Corpuscular Hemoglobin Concent 35.3 G/DL (32.0-36.0) Red Cell Distribution Width 11.7 % (11.6-14.8) Platelet Count 238 K/UL (150-450) Mean Platelet Volume 7.3 FL (6.5-10.1) Neutrophils (%) (Auto) 48.4 % (45.0-75.0) Lymphocytes (%) (Auto) 43.3 % (20.0-45.0) Monocytes (%) (Auto) 6.5 % (1.0-10.0) Eosinophils (%) (Auto) 0.9 % (0.0-3.0) Basophils (%) (Auto) 1.0 % (0.0-2.0) Prothrombin Time 14.7 SEC (9.30-11.50) H Prothromb Time International Ratio 1.4 (0.9-1.1) H Activated Partial Thromboplast Time 33 SEC (23-33) Sodium Level 141 MMOL/L (136-145) Potassium Level 3.9 MMOL/L (3.5-5.1) Chloride Level 105 MMOL/L (98-107) Carbon Dioxide Level 29 MMOL/L (21-32) Anion Gap 7 mmol/L (5-15) Blood Urea Nitrogen 21 mg/dL (7-18) H Creatinine 0.7 MG/DL (0.55-1.30) Estimat Glomerular Filtration Rate mL/min (>60) Glucose Level 102 MG/DL (74-106) Calcium Level 9.3 MG/DL (8.5-10.1) Height (Feet): 5 Height (Inches): 3.00 Weight (Pounds): 150 General Appearance: no apparent distress Cardiovascular: normal rate Respiratory/Chest: normal breath sounds, no respiratory distress Abdominal Exam: normal bowel sounds, non tender, soft Extremities: normal range of motion Shira Tellez N.P. May 18, 2017 13:01
[2017-05-18 16:00] VITALS: BP 129/78
[2017-05-18] MEDS ORDERED: Bisacodyl EC 5mg tab ORAL ONE (16:00)
[2017-05-18] MEDS ORDERED: Polyethylene Glycol 238gm bottle ORAL ONE (16:00)
[2017-05-18] MEDS ORDERED: Magnesium Citrate Liq Btl ORAL ONE (16:00)
[2017-05-18 20:00] VITALS: BP 130/88
[2017-05-18] MEDS ORDERED: Warfarin Sodium 1mg ORAL SCH (20:00)
[2017-05-18] MEDS: Miralax 17gm pkt ORAL SCH (20:52)
--- NOTE | 2017-05-18 21:45 | General Progress Note ---
Assessment/Plan Problem List: (1) Supratherapeutic INR ICD Codes: R79.1 - Abnormal coagulation profile SNOMED: 038426027 (2) Abdominal pain ICD Codes: R10.9 - Unspecified abdominal pain SNOMED: 22037835 Status: progressing Assessment/Plan inr is coming down no bleeding will dc in am Subjective ROS Limited/Unobtainable: Yes Allergies: Coded Allergies: MICAFUNGIN (Unverified Allergy, Unknown, 05/15/17) VANCOMYCIN (Unverified Allergy, Unknown, 05/15/17) Objective Last 24 Hour Vital Signs Date Time Temp Pulse Resp B/P (MAP) Pulse Ox O2 Delivery O2 Flow Rate FiO2 05/18/17 16:00 84 05/18/17 16:00 97.2 102 20 129/78 99 Room Air 05/18/17 12:00 97.2 80 20 120/67 94 Room Air 05/18/17 12:00 80 05/18/17 08:00 97.2 88 21 111/78 97 Room Air 05/18/17 08:00 84 05/18/17 04:00 73 05/18/17 04:00 97.3 72 20 114/78 97 Room Air 05/18/17 00:00 97.5 75 20 111/79 95 Room Air 05/18/17 00:00 80 Intake and Output 05/17/17 05/18/17 19:00 07:00 Intake Total 720 ml Balance 720 ml Intake Oral 720 ml # Voids 3 1 Laboratory Tests 05/18/17 07:07: White Blood Count 6.1, Red Blood Count 4.53, Hemoglobin 15.3, Hematocrit 43.3, Mean Corpuscular Volume 96, Mean Corpuscular Hemoglobin 33.8H, Mean Corpuscular Hemoglobin Concent 35.3, Red Cell Distribution Width 11.7, Platelet Count 238, Mean Platelet Volume 7.3, Neutrophils (%) (Auto) 48.4, Lymphocytes (%) (Auto) 43.3, Monocytes (%) (Auto) 6.5, Eosinophils (%) (Auto) 0.9, Basophils (%) (Auto ) 1.0, Prothrombin Time 14.7H, Prothromb Time International Ratio 1.4H, Activated Partial Thromboplast Time 33, Sodium Level 141, Potassium Level 3.9, Chloride Level 105, Carbon Dioxide Level 29, Anion Gap 7, Blood Urea Nitrogen 21H, Creatinine 0.7, Estimat Glomerular Filtration Rate , Glucose Level 102, Calcium Level 9.3 Height (Feet): 5 Height (Inches): 3.00 Weight (Pounds): 150 Respiratory/Chest: lungs clear Abdomen: soft Natalee Salazar MD May 18, 2017 21:45
[2017-05-18] MEDS ORDERED: Fleet's Enema 133ml RECTAL ONE (23:00)
[2017-05-19] VITALS: BP 107/75
--- NOTE | 2017-05-19 00:01 | General Progress Note ---
Assessment/Plan Assessment/Plan 1. Coagulopathy due to underlying supratherapeutic use of Coumadin. --> Vitamin K administered. --> INR downtrended and now 1.4, okay to resume Coumadin --> INR goal between 2 and 3. 2. Status post craniectomy. 3. Abdominal pain, rule out bleed. --> To be seen by GI Service. --> On pain control. 4. Leukocytosis in the past. --> INR downtrended. --> Wbc WNL at this time. 5. Hyperglycemia. Check A1c. Subjective Date patient seen: May 18, 2017 Constitutional: Denies: no symptoms, chills, diaphoresis, fever, malaise, weakness, other HEENT: Denies: no symptoms, eye pain, blurred vision, tearing, double vision, ear pain, ear discharge, nose pain, nose congestion, throat pain, throat swelling, mouth pain, mouth swelling, other Cardiovascular: Denies: no symptoms, chest pain, edema, irregular heart rate, lightheadedness, palpitations, syncope, other Respiratory: Denies: no symptoms, cough, orthopnea, shortness of breath, SOB with excertion, SOB at rest, sputum, stridor, wheezing, other Gastrointestinal/Abdominal: Denies: no symptoms, abdomen distended, abdominal pain, black stools, tarry stools, blood in stool, constipated, diarrhea, difficulty swallowing, nausea, poor appetite, poor fluid intake, rectal bleeding , vomiting, other Genitourinary: Denies: no symptoms, burning, discharge, frequency, flank pain, hematuria, incontinence, pain, urgency, other Allergies: Coded Allergies: MICAFUNGIN (Unverified Allergy, Unknown, 05/15/17) VANCOMYCIN (Unverified Allergy, Unknown, 05/15/17) Subjective INR improving. Afebrile. Resting in bed. Objective Last 24 Hour Vital Signs Date Time Temp Pulse Resp B/P (MAP) Pulse Ox O2 Delivery O2 Flow Rate FiO2 05/18/17 20:00 97.5 98 18 130/88 96 Room Air 05/18/17 20:00 94 05/18/17 16:00 84 05/18/17 16:00 97.2 102 20 129/78 99 Room Air 05/18/17 12:00 97.2 80 20 120/67 94 Room Air 05/18/17 12:00 80 05/18/17 08:00 97.2 88 21 111/78 97 Room Air 05/18/17 08:00 84 05/18/17 04:00 73 05/18/17 04:00 97.3 72 20 114/78 97 Room Air Intake and Output 05/18/17 05/19/17 19:00 07:00 Intake Total 950 ml Balance 950 ml Intake Oral 950 ml # Voids 3 Laboratory Tests 05/18/17 07:07: White Blood Count 6.1, Red Blood Count 4.53, Hemoglobin 15.3, Hematocrit 43.3, Mean Corpuscular Volume 96, Mean Corpuscular Hemoglobin 33.8H, Mean Corpuscular Hemoglobin Concent 35.3, Red Cell Distribution Width 11.7, Platelet Count 238, Mean Platelet Volume 7.3, Neutrophils (%) (Auto) 48.4, Lymphocytes (%) (Auto) 43.3, Monocytes (%) (Auto) 6.5, Eosinophils (%) (Auto) 0.9, Basophils (%) (Auto ) 1.0, Prothrombin Time 14.7H, Prothromb Time International Ratio 1.4H, Activated Partial Thromboplast Time 33, Sodium Level 141, Potassium Level 3.9, Chloride Level 105, Carbon Dioxide Level 29, Anion Gap 7, Blood Urea Nitrogen 21H, Creatinine 0.7, Estimat Glomerular Filtration Rate , Glucose Level 102, Calcium Level 9.3 Height (Feet): 5 Height (Inches): 3.00 Weight (Pounds): 150 Huseyin Van May 19, 2017 00:01
[2017-05-19 04:00] VITALS: BP 126/88
[2017-05-19 08:00] VITALS: BP 123/77
[2017-05-19] MEDS: Docusate 100mg cap ORAL SCH ×2 (08:14→12:10)
[2017-05-19] MEDS ORDERED: ZANTAC150 MG ORAL (08:15)
[2017-05-19] MEDS ORDERED: AMIODARONE HCL100 MG ORAL (08:15)
[2017-05-19] MEDS ORDERED: COUMADIN4 MG ORAL (08:15)
[2017-05-19] MEDS ORDERED: POLYETHYLENE GL17 GM ORAL ×2 (08:15)
[2017-05-19] MEDS ORDERED: AMANTADINE100 M2 ORAL (08:15)
[2017-05-19] MEDS ORDERED: MILK OF MA400 MG/51 ORAL (08:15)
[2017-05-19] MEDS ORDERED: COUMADIN1 MG ORAL (08:15)
[2017-05-19] MEDS ORDERED: ZYRTEC10 MG ORAL (08:15)
[2017-05-19] MEDS ORDERED: RANITIDINE HCL150 MG ORAL (08:15)
[2017-05-19] MEDS ORDERED: KEPPRA500 M3 ORAL (08:15)
[2017-05-19] MEDS ORDERED: ACETAMINOPHEN325 M1 ORAL (08:15)
[2017-05-19] MEDS ORDERED: MULTIVITAMINS1 EAC8 ORAL (08:15)
[2017-05-19] MEDS ORDERED: Warfarin Sodium 1mg ORAL SCH (09:00)
[2017-05-19 09:28] LABS: BASOPHILS % (AUTO) 0.9 % (0.0-2.0); EOSINOPHILS % (AUTO) 0.7 % (0.0-3.0); HEMATOCRIT 44.3 % (37.0-47.0); HEMOGLOBIN 15.4 G/DL (12.0-16.0); LYMPHOCYTES % (AUTO) 35.8 % (20.0-45.0); MEAN CORPUSCULAR VOLUME 96 FL (80-99); MONOCYTES % (AUTO) 5.1 % (1.0-10.0); NEUTROPHILS % (AUTO) 57.5 % (45.0-75.0); PLATELET COUNT 238 K/UL (150-450); RED BLOOD COUNT 4.62 M/UL (4.20-5.40); RED CELL DISTRIBUTION WIDTH 11.5 % (11.6-14.8); WHITE BLOOD COUNT 5.6 K/UL (4.8-10.8)
[2017-05-19 09:31] LABS: INR 1.3 (0.9-1.1)
--- NOTE | 2017-05-19 11:22 | GI Progress Note ---
Assessment/Plan Problems: (1) Abdominal pain ICD Codes: R10.9 - Unspecified abdominal pain SNOMED: 97126481 (2) Constipation ICD Codes: K59.00 - Constipation, unspecified SNOMED: 08905317 (3) Supratherapeutic international normalized ratio (INR) ICD Codes: R79.1 - Abnormal coagulation profile SNOMED: 939741386 Status: stable Status Narrative Discussed with Dr. Peter. Assessment/Plan KUB reviewed >> constipation symptomatic treatment >> okay for DC per GI standpoint bowel regime >> colace + miralax, prn mineral oil enema regular diet, tolerating PT/OT eval H2B fu labs, [facility] outpatient GI procedures Subjective Subjective denies abdominal pain had multiple BMs Objective Last 24 Hour Vital Signs Date Time Temp Pulse Resp B/P (MAP) Pulse Ox O2 Delivery O2 Flow Rate FiO2 05/19/17 08:00 98.2 92 18 123/77 96 05/19/17 04:00 97 05/19/17 04:00 98.1 85 18 126/88 96 Room Air 05/19/17 00:00 97.5 91 18 107/75 96 Room Air 05/19/17 00:00 90 05/18/17 20:00 97.5 98 18 130/88 96 Room Air 05/18/17 20:00 94 05/18/17 16:00 84 05/18/17 16:00 97.2 102 20 129/78 99 Room Air 05/18/17 12:00 97.2 80 20 120/67 94 Room Air 05/18/17 12:00 80 Intake and Output 05/18/17 05/19/17 19:00 07:00 Intake Total 950 ml 120 ml Balance 950 ml 120 ml Intake Oral 950 ml 120 ml # Voids 3 2 Laboratory Tests Test 05/19/17 08:05 White Blood Count 5.6 K/UL (4.8-10.8) Red Blood Count 4.62 M/UL (4.20-5.40) Hemoglobin 15.4 G/DL (12.0-16.0) Hematocrit 44.3 % (37.0-47.0) Mean Corpuscular Volume 96 FL (80-99) Mean Corpuscular Hemoglobin 33.4 PG (27.0-31.0) H Mean Corpuscular Hemoglobin Concent 34.8 G/DL (32.0-36.0) Red Cell Distribution Width 11.5 % (11.6-14.8) L Platelet Count 238 K/UL (150-450) Mean Platelet Volume 6.4 FL (6.5-10.1) L Neutrophils (%) (Auto) 57.5 % (45.0-75.0) Lymphocytes (%) (Auto) 35.8 % (20.0-45.0) Monocytes (%) (Auto) 5.1 % (1.0-10.0) Eosinophils (%) (Auto) 0.7 % (0.0-3.0) Basophils (%) (Auto) 0.9 % (0.0-2.0) Prothrombin Time 13.7 SEC (9.30-11.50) H Prothromb Time International Ratio 1.3 (0.9-1.1) H Activated Partial Thromboplast Time 33 SEC (23-33) Height (Feet): 5 Height (Inches): 3.00 Weight (Pounds): 150 General Appearance: WD/WN, no apparent distress, alert Cardiovascular: normal rate Respiratory/Chest: normal breath sounds, no respiratory distress Abdominal Exam: normal bowel sounds, non tender, soft Extremities: normal range of motion, non-tender Shira Tellez N.P. May 19, 2017 11:22
[2017-05-19 12:00] VITALS: BP 121/89
--- NOTE | 2017-05-19 23:51 | General Progress Note ---
Assessment/Plan Assessment/Plan 1. Coagulopathy due to underlying supratherapeutic use of Coumadin. --> Vitamin K administered. --> INR downtrended and now 1.4, okay to resume Coumadin --> INR goal between 2 and 3. --> Monitor closely. 2. Status post craniectomy. 3. Abdominal pain, rule out bleed. --> To be seen by GI Service. --> On pain control. 4. Leukocytosis in the past. --> Resolved. 5. Hyperglycemia. Check A1c. Subjective Date patient seen: May 19, 2017 Constitutional: Denies: no symptoms, chills, diaphoresis, fever, malaise, weakness, other HEENT: Denies: no symptoms, eye pain, blurred vision, tearing, double vision, ear pain, ear discharge, nose pain, nose congestion, throat pain, throat swelling, mouth pain, mouth swelling, other Cardiovascular: Denies: no symptoms, chest pain, edema, irregular heart rate, lightheadedness, palpitations, syncope, other Respiratory: Denies: no symptoms, cough, orthopnea, shortness of breath, SOB with excertion, SOB at rest, sputum, stridor, wheezing, other Gastrointestinal/Abdominal: Denies: no symptoms, abdomen distended, abdominal pain, black stools, tarry stools, blood in stool, constipated, diarrhea, difficulty swallowing, nausea, poor appetite, poor fluid intake, rectal bleeding , vomiting, other Genitourinary: Denies: no symptoms, burning, discharge, frequency, flank pain, hematuria, incontinence, pain, urgency, other Hematologic/Lymphatic: Reports: anemia Allergies: Coded Allergies: MICAFUNGIN (Unverified Allergy, Unknown, 05/15/17) VANCOMYCIN (Unverified Allergy, Unknown, 05/15/17) Subjective INR improved. NAD. No fever. Objective Last 24 Hour Vital Signs Date Time Temp Pulse Resp B/P (MAP) Pulse Ox O2 Delivery O2 Flow Rate FiO2 05/19/17 12:00 95 05/19/17 12:00 97.9 95 20 121/89 95 05/19/17 08:00 93 05/19/17 08:00 98.2 92 18 123/77 96 05/19/17 04:00 97 05/19/17 04:00 98.1 85 18 126/88 96 Room Air 05/19/17 00:00 97.5 91 18 107/75 96 Room Air 05/19/17 00:00 90 Intake and Output 05/18/17 05/19/17 19:00 07:00 Intake Total 950 ml 120 ml Balance 950 ml 120 ml Intake Oral 950 ml 120 ml # Voids 3 2 Laboratory Tests 05/19/17 08:05: White Blood Count 5.6, Red Blood Count 4.62, Hemoglobin 15.4, Hematocrit 44.3, Mean Corpuscular Volume 96, Mean Corpuscular Hemoglobin 33.4H, Mean Corpuscular Hemoglobin Concent 34.8, Red Cell Distribution Width 11.5L, Platelet Count 238, Mean Platelet Volume 6.4L, Neutrophils (%) (Auto) 57.5, Lymphocytes (%) (Auto) 35.8, Monocytes (%) (Auto) 5.1, Eosinophils (%) (Auto) 0.7, Basophils (%) (Auto ) 0.9, Prothrombin Time 13.7H, Prothromb Time International Ratio 1.3H, Activated Partial Thromboplast Time 33 Height (Feet): 5 Height (Inches): 3.00 Weight (Pounds): 150 General Appearance: no apparent distress Respiratory/Chest: decreased breath sounds Abdomen: non tender, soft Huseyin Van May 19, 2017 23:51
--- NOTE | 2017-05-22 10:31 | Discharge Summary ---
Discharge Summary Hospital Course Date of Admission May 15, 2017 at 21:15 Date of Discharge May 19, 2017 at 13:56 Admitting Diagnosis supratherapeutic INR HPI Melba Andino is a 71 year old female who was admitted on May 15, 2017 at 21:15 for Supratherpeutic Inr Hospital Course dc summary #[id number] Discharge Medications Continued Medications: Acetaminophen* (Acetaminophen 325MG Tablet*) 325 Mg Tablet 650 MG ORAL Q4H PRN for For Pain, TAB Acetaminophen* (Acetaminophen 325MG Tablet*) 325 Mg Tablet 650 MG ORAL Q4H PRN for TEMP >101, TAB Amantadine Hcl* (Amantadine*) 100 Mg Tablet 100 MG ORAL TWICE A DAY, TAB Amiodarone Hcl (Amiodarone Hcl) 100 Mg Tablet 200 MG ORAL DAILY, TAB Cetirizine Hcl* (Zyrtec*) 10 Mg Tablet 10 MG ORAL Q6HR, #30 TAB 0 Refills Levetiracetam (Levetiracetam) 500 Mg Tablet 250 MG ORAL TWICE A DAY, #60 TAB 0 Refills Magnesium Hydroxide* (Milk Of Magnesia*) 400 Mg/5 Ml Oral.susp 30 ML ORAL Q4HR, ML Multivitamin With Minerals (Multivitamins With Minerals*) 1 Each Tablet 1 TAB ORAL DAILY, TAB Multivitamin With Minerals (Multivitamins With Minerals*) 1 Each Tablet 1 TAB ORAL DAILY, TAB Polyethylene Glycol 3350* (Polyethylene Glycol 3350*) 17 Gm Powd.pack 17 GM ORAL BEDTIME PRN for Constipation, PACKET Polyethylene Glycol 3350* (Polyethylene Glycol 3350*) 17 Gm Powd.pack 17 GM ORAL DAILY, PACKET Ranitidine Hcl* (Zantac*) 150 Mg Tablet 150 MG ORAL TWICE A DAY PRN for PRN, TAB Ranitidine Hcl* (Zantac*) 150 Mg Tablet 150 MG ORAL TWICE A DAY, TAB Discontinued Medications: Warfarin Sod* (Coumadin*) 1 Mg Tablet 1.5 MG ORAL QHS, TAB Warfarin Sod* (Coumadin*) 4 Mg Tablet 4 MG ORAL QHS, TAB Discharge Condition Upon Discharge: stable Discharge Disposition Patient was discharged to SNF/Subacute Facility(03) Discharge Diagnoses: Discharge Instructions Discharge Instructions Special Instructions I have been assigned to complete a D/C Summary on this account. I was not involved in the patient management Leona Tellez NP (Vanchtein)b 12, 2018 10:31
--- NOTE | 2017-05-22 23:15 | Discharge Summary 2 SIG ---
DATE OF ADMISSION: 05/15/2017 DATE OF DISCHARGE: 05/19/2017 REASON FOR ADMISSION: 71-year-old female with past medical history of CVA, atrial fibrillation, and TIA, presented to emergency room for evaluation. The patient was sent for abnormal laboratories from the [facility]. She was on Coumadin. INR was elevated. The patient denied chest pain, shortness of breath, nausea, vomiting, or headache. Upon evaluation in the emergency department, vital signs were stable. EKG showed normal sinus rhythm. No acute ischemic changes. Chest x-ray revealed no acute cardiopulmonary pathology. CT of the brain revealed changes consistent with history of craniectomy, but no acute bleeding. INR was 8.1. The patient was given vitamin K. Stable hemoglobin and hematocrit. No leukocytosis. Electrolytes were stable. Liver enzymes were within normal limits. Troponin was negative. The patient was admitted for coagulopathy secondary to underlying supra-therapeutic dose of Coumadin. HOSPITAL COURSE: The patient was admitted. Hematology and GI consults were requested. The patient also complained of abdominal pain. [employer] closely followed the patient. Venous duplex of bilateral lower extremities was negative. INR was followed up on a daily basis. On the next day after treatment with vitamin K, INR down to 1.5. The patient was restarted on Coumadin per pharmacy. Prior to discharge, INR -1.3. The patient was discharged on the Coumadin to closely follow up with the dosing at the [facility], to keep INR in therapeutic range. The patient had abdominal pain. GI seen and evaluated the patient. Abdominal x-ray revealed evidence of constipation and mild rectal fecal impaction was not excludable. GI started the patient on bowel regimen: Colace with MiraLAX and p.r.n. mineral oil enema. The patient was started on the diet. Patient was able to tolerate diet. No nausea. No vomiting. The patient had bowel movement. H2 mary was added to existing regimen. Hemoglobin and hematocrit remained stable. GI recommended symptomatic treatment and outpatient GI procedure. No evidence of anemia. Hemoglobin A1c -6.4. The highest fasting blood sugar in the hospital-121. The patient apparently had a new onset of diabetes and need to start on oral anti-glycemic medication at the facility. The patient was stable for discharge. FINAL DIAGNOSES: 1. Coagulopathy secondary to supra-therapeutic dose of Coumadin. 2. Abdominal pain. 3. Constipation. 4. Status post craniectomy. 5. Hyperglycemia DISCHARGE MEDICATIONS: See medication reconciliation list. DISCHARGE INSTRUCTIONS: The [facility]. Follow up with the primary care provider at the facility. Closely monitor dosing of the Coumadin to keep INR in therapeutic range between 2 and 3 and start anti-glycemic medication for new onset of diabetes. Natalee Salazar M.D. I have been assigned to dictate discharge summary on this account and I was not involved in the patient's management. Leona Tellez (Queeniefranky N.P. DR: GLORY JOB#: [id number] CC: AMBER
--- NOTE | 2017-05-23 13:17 | Diagnostic Imaging Report ---
APPROVED REPORT CPT Code: 75008 Present Symptoms Comments: R/O DVT BILATERAL: Imaging reveals a patent deep venous system bilaterally. There is no evidence of thrombus within the femoral, popliteal or tibial segments. The greater saphenous veins are also within normal limits. Doppler indicates normal spontaneous flow within these segments.
== END 2017-05-19 13:56 | DRG 813 ==
LOC: EDBD 20:08 → EMR 21:10 → 2E 21:15 → EDBEDREQ 22:23 → 2E 05-16 01:38
DX: D68.8 Other specified coagulation defects (principal); K59.00 Constipation, unspecified; R10.9 Unspecified abdominal pain; Z79.01 Long term (current) use of anticoagulants; R73.9 Hyperglycemia, unspecified; Z88.1 Allergy status to other antibiotic agents; Z88.8 Allergy status to other drugs, medicaments and biological substances; Z86.73 Personal history of transient ischemic attack (TIA), and cerebral infarction without residual deficits
CPT/HCPCS: 36415; 70450; 71045; 74018; 80048; 80053; 82378; 82550; 82553; 83036; 84484; 85025; 85610; 85730; 86850; 86900; 86901; 87081; 93005; 93970; 99285; J3430